=== PATIENT | female | born 1965 | race Caucasian/White ===

== ENCOUNTER → 2022-08-10 | Outpatient (CLI) | payer OTHER, SELFPAY ==
[2022-08-12 14:09] LABS: Endomysial Antibody IgA Negative (Negative)
[2022-08-12 16:30] LABS: Immunoglobulin A 107 mg/dL (87-352); t-Transglutaminase IgA <2 U/mL (0-3)
== END | disposition home or self-care (01) ==
LOC: MTLAB 15:20
PROVIDERS: PCP Nurse Practitioner Family; Referring Provider Internal Medicine Gastroenterology; Visit Provider Internal Medicine Gastroenterology
DX: R19.7 Diarrhea, unspecified (principal)
CPT/HCPCS: 36415; 82784; 83516; 86140; 86255

== ENCOUNTER → 2023-01-27 | Outpatient (CLI) | payer OTHER, SELFPAY ==
[2023-01-27 13:17] LABS: Hemoglobin A1c 9.8 % (3.8-5.6)
== END | disposition home or self-care (01) ==
LOC: MTLAB 10:14
PROVIDERS: PCP Nurse Practitioner Family; Referring Provider Internal Medicine Gastroenterology; Visit Provider Internal Medicine Gastroenterology
DX: R19.7 Diarrhea, unspecified (principal)
CPT/HCPCS: 36415; 83036; 86140

== ENCOUNTER → 2023-01-29 | Outpatient (CLI) | payer OTHER, SELFPAY ==
[2023-02-04 16:09] LABS: Pancreatic Elastase, Fecal 362 (>200)
== END | disposition home or self-care (01) ==
LOC: MTLAB 09:41
PROVIDERS: PCP Nurse Practitioner Family; Referring Provider Internal Medicine Gastroenterology; Visit Provider Internal Medicine Gastroenterology
DX: R19.7 Diarrhea, unspecified (principal)
CPT/HCPCS: 82274; 82653

== ENCOUNTER → 2023-12-17 | Outpatient (CLI) | payer OTHER, SELFPAY ==
[2023-12-17 10:59] LABS: Bacteria 0 SEEN /hpf (None Seen); Mucous, Urine 0 SEEN /hpf (<or=2+); Red Blood Cells-Urine 0 SEEN /hpf (0-5); Squamous Epithelial Cells - UA 0 SEEN /hpf (5-10)
[2023-12-17 11:03] LABS: Color, Urine Yellow (Yellow); Glucose, Dipstick Normal (Normal); Ketone-Dipstick Negative (Negative); Leukocyte Esterase-Dipstick 500 /ul (Negative); Nitrite-Dipstick Negative (Negative); Occult Blood-Urine 250 /ul (Negative); Protein-Dipstick 100 mg/dl (Negative); Specific Gravity, Urine 1.015 (1.002-1.030); Urine Bilirubin Dipstick Negative (Negative); Urine Clarity Cloudy (Clear); Urine Urobilinogen Normal (Normal)
[2023-12-17 11:10] LABS: White Blood Cells >100 SEEN /hpf (0-5)
[2023-12-17 11:56] LABS: Microalbumin:Creatinine Ratio 782.9 mg/g CRE (<30 mg/g CRE)
== END | disposition home or self-care (01) ==
LOC: PAVLAB 10:20
PROVIDERS: Nurse Practitioner Family; PCP Nurse Practitioner Family; Referring Provider Internal Medicine Endocrinology, Diabetes & Metabolism; Visit Provider Internal Medicine Endocrinology, Diabetes & Metabolism
DX: R31.9 Hematuria, unspecified (principal); E10.9 Type 1 diabetes mellitus without complications; E78.00 Pure hypercholesterolemia, unspecified
CPT/HCPCS: 81001; 82043; 82570; 87077; 87086; 87088; 87186

== ENCOUNTER → 2024-01-05 | Outpatient (CLI) | payer OTHER, SELFPAY ==
[2024-01-05 12:12] LABS: Absolute Lymphocyte Count 1.97 X10^3/uL (0.83-4.51); Absolute Neutrophil Count 3.5 X10^3/uL (2.0-7.7); Basophil# 0.06 X10^3/uL; Eosinophil# 0.01 X10^3/uL; Eosinophils% 0.2 % (0-5); Hematocrit 42.3 % (37-47); Hemoglobin 14.2 g/dL (12.0-15.0); Lymphocyte # 1.97 X10^3/ul (0.83-4.51); Lymphocyte % 31.4 % (19-41); Mean Corp Hgb Conc 33.6 g/dL (32-36); Mean Corpuscular Hgb 32.1 pg (27.0-32.0); Mean Corpuscular Volume 95.5 fL (81-99); Mean Platelet Vol. 9.9 fl (6.2-12.0); Monocyte# 0.72 X10^3/uL; Monocyte% 11.5 % (0-10); NRBC Flagged by Analyzer 0 % (0-5); Neutrophil # 3.47 X10^3/uL (2.7-7.7); Neutrophil % 55.3 % (47-70); Platelet Count 460 K/mm3 (150-450); Red Blood Count 4.43 M/mm3 (4.2-5.4); White Blood Count 6.3 K/mm3 (4.4-11.0)
[2024-01-05 12:52] LABS: Microalbumin,Random Urine 7.9 mg/L (NO RANGE EST.); Microalbumin:Creatinine Ratio 6.3 mg/g CRE (<30 mg/g CRE)
[2024-01-05 13:00] LABS: Vitamin D,25 Hydroxy 54.9 ng/mL
[2024-01-05 13:08] LABS: ALB/GLOB Ratio 0.7 RATIO (0.9-2.4); AST(SGOT) 24 U/L (15-37); Alanine Aminotransfer ALT/SGPT 21 U/L (13-56); Albumin, Serum 3.1 g/dL (3.2-5.0); Alkaline Phosphatase 137 U/L (45-117); Anion Gap 4 (5-15); BUN 14 mg/dL (7-18); BUN/Creat Ratio 18.6 RATIO (10-20); Calcium,Total 9.1 mg/dL (8.5-10.1); Chloride 102 mmol/L (98-107); Cholesterol 280 mg/dL (200); Creatinine, Serum 0.75 mg/dL (0.55-1.02); EST Glomerular Filtration Rate 84 mL/min (>60); Est Glom Filt Rate - Afr Amer 102 mL/min (>60); Globulin 4.3 g/dL (2.2-4.2); Glucose 125 mg/dL (74-106); High Density Lipoprotein 86 mg/dL; Potassium 4.2 mmol/L (3.5-5.1); Protein, Total 7.4 g/dL (6.4-8.2); Sodium Level 137 mmol/L (136-145); Thyroid Stim Hormone (TSH) 0.99 uIU/mL (0.358-3.74); Triglycerides 102 mg/dL; Very Low Density Lipoprotein 20 mg/dL (5-40)
== END | disposition home or self-care (01) ==
LOC: BIMLAB 10:48
PROVIDERS: Nurse Practitioner Family; PCP Nurse Practitioner; Referring Provider Internal Medicine; Visit Provider Internal Medicine
DX: E10.9 Type 1 diabetes mellitus without complications (principal); R31.9 Hematuria, unspecified
CPT/HCPCS: 36415; 80053; 80061; 82043; 82306; 82570; 84443; 85025

== ENCOUNTER → 2024-01-13 | Outpatient (CLI) | payer OTHER, SELFPAY ==
--- NOTE | 2024-01-13 15:18 | CT_ITS ---
STUDY: CT ABDOMEN AND PELVIS WITH AND WITHOUT CONTRAST REASON FOR EXAM: Female, 58 years old. Recurrent hematuria -- with urogram. Recurrent UTIs. RADIATION DOSAGE (If Supplied By Facility): CTDIvol = ( 26.11 ) mGy, DLP = ( 3980.92 ) mGycm TECHNIQUE: Transaxial images were obtained from the dome of the diaphragm to the symphysis pubis without oral contrast. IV 100mL Isovue-300 was administered. Sagittal and coronal images were reconstructed. Individualized dose optimization techniques were used for this CT. COMPARISON: None. FINDINGS: The visualized lung bases are unremarkable. The visualized portions of the heart are within normal limits. There is decreased attenuation of the liver consistent with steatosis. Normal gallbladder and extrahepatic biliary system. Normal spleen. Normal pancreas. Normal bilateral adrenal glands. Normal right kidney. Normal left kidney. Incidental note is made of a left retroaortic renal vein. Normal visualized stomach. Normal small intestine. Surgical anastomosis seen in the region of the mid ascending colon. There is non-visualization of the appendix. There is scattered atherosclerotic calcification of the abdominal aorta, without a demonstrated aneurysm. Normal inferior vena cava. Normal retroperitoneum. Normal urinary bladder. Mild degree of increased soft tissue changes in the anterior lateral abdominal wall bilaterally just deep to the skin. Moderate degree of disc space narrowing at the L4-L5 level with spondylosis and subchondral sclerosis. CT/CT Abd/Pelvis W/WO Contrast IMPRESSION: Fatty infiltration of the liver. Surgical anastomosis is seen in the region of the mid descending colon. Electronically Signed: Yousuf Griffiths MD at 9:13 EDT ,
== END | disposition home or self-care (01) ==
LOC: CT 15:15
PROVIDERS: PCP Nurse Practitioner; Referring Provider Nurse Practitioner; Visit Provider Nurse Practitioner
DX: R31.9 Hematuria, unspecified (principal)
CPT/HCPCS: 74178; Q9967

== ENCOUNTER 2024-05-30 11:34 | Outpatient (RCR) | payer OTHER, SELFPAY ==
--- NOTE | 2024-05-31 16:50 | HP.OTFCE_ITS ---
Task Lift Floor (Occasional 1-33% of Day): 20 Floor (Frequent 34-66% of Day): 10 Floor (Constant 67-100% of Day): 4.21 Floor PDL: Light Knee (Occasional 1-33% of Day): 20 Knee (Frequent 34-66% of Day): 10 Knee (Constant 67-100% of Day): 4.21 Knee PDL: Light Waist (Occasional 1-33% of Day): 20 Waist (Frequent 34-66% of Day): 10 Waist (Constant 67-100% of Day): 4.21 Waist PDL: Light Shoulder (Occasional 1-33% of Day): 15 Shoulder (Frequent 34-66% of Day): 7.5 Shoulder (Constant 67-100% of Day): 3.15 Shoulder PDL: Sedentary-Light Overhead (Occasional 1-33% of Day): 15 Overhead (Frequent 34-66% of Day): 7.5 Overhead (Constant 67-100% of Day): 3.15 Overhead PDL: Sedentary-Light Work Activity/Posture Bending: Frequent Ability (34-66% of day) Squatting: Frequent Ability (34-66% of day) Kneeling: No Ablility (0% of day) Reaching out: Constant Ability (67-100% of day) Reaching up: Constant Ability (67-100% of day) Sitting: Frequent Ability (34-66% of day) Walking: Occasional Ability (1-33% of day) Standing: Occasional Ability (1-33% of day) Reference Reference: Duration Sedentary Sedentary Light Light Light Medium Medium Medium Heavy Very Heavy Heavy Occasional (0-33% of day) Frequent (34-66% of day) Constant (67-100% of day) 10 # Negligible Negligible 15 # 8 # Negligible 20 # 10# Negli. 35 # 18 # 7 # 50 # 25 # 10 # 75 # 100 # >100 # 38 # 50 # >50 # 15 # 20 # >20 # Patient Information Height: 5 ft 3 in Weight:: 109.769 kg Hand Dominance: R Medical History Medical History Including Restrictions: Pt reports main complaint is B bad knees which she reports she has had shots in them aprox 1 year ago which wears off quickly. legs constantly hurt as well as low back pain. pt reports now having sciatic pain on R side down to knee which started around december of this year 2023. pt has seen chiropractor however has not helped. has not done therapy at this time. Pt reports frequent UTIs which makes pt sick for approx 3 days until antibiotics gets working. pt states she sees urologist for this and has been prescribed as needed antibiotics. . Pt is type 1 diabetic. pt takes advil for pain as needed. has not yet seen pain management. pt does report tennis elbow on R side many years ago unable to remember if she had therapy for this or not reports similar pain on L side however never formally dx stating this causing weakness and pain with UB use. PMH: hematuria, high cholesterol, HTN, obesity and DM type 1. Diagnoses Diagnoses: Z02.71 Encounter for disability determination Symptoms Symptoms: knee pain both sides R side sciatic pain lower back pain frequent pain from UTI mostly nausea and upset stomach Pain Pain: knees 6/10 B sides R sciatic pain 9/10 which is random in presentation lower back 5/10 Don score 56/72 Work History Work History: [employer] 15 years left this job in pt has not worked since this [employer] work was there for approx 7 years before they went out of business Behavioral Behavioral: calm and cooperative ADLS ADLS: pt lives with spouse in private home 2 story home with 3 stairs to enter with hand rail ascending R side. main level with bathroom and bedroom. second floor is downstairs with laundry which pt reports does laundry pt declines going down steps. 6 steps down with no railing. Pt is I in ADL tasks as well as IADL tasks. Drives. Shower with tub shower combo with grab bars pt does have a seat in her tub and alternates between sit and standing during task. takes care of small dog at home. Physical Examination Physical Examination: pt arrives for FCE completion able to stand from chair and walk back to OT room no AD needed slow pace. baseline HR 63 bpm and 02 96% ROM: BUE AROM WFL BLE AROM WFL Strength: UB strength measured with micro fet 2 peak force tool L shoulder flexion 6.5# R shoulder flexion 6.8# L bicep 15# R bicep 9.1 # L tricep 7.3# R tricep 6.8# Lower extremities: L hamstrin.6# R hamstrin.3# L quad: 11.9# R quad: 6.5# L hamstrin.5# R hamstrin.6# Right [employer] Sales [employer] Strength Average: 13.33 Right Regional Sales Associate Strength Percentile: 50th percentile Left Regional Sales Associate Strength Average: 15.00 Left Regional Sales Associate Strength Percentile: 46th percentile Right Lateral Pinch Average: 0.33 Right Lateral Pinch Percentile: < 10th percentile Left Lateral Pinch Average: 2.00 Left Lateral Pinch Percentile: < 10th percentile Right Tripod Pinch Average: 1.00 Right Tripod Pinch Percentile: < 10th percentile Left Tripod Pinch Average: 0.33 Left Tripod Pinch Percentile: < 10th percentile Sensation: reports getting numbness and tingling in fingers tips was wearing braces on hands for this occasionally semmes- quin monofilaments L hand 2.44 indicating in normal range R hand 3.22 indicating diminished light touch Fine Motor: denies difficulty with fine motor reports able to manage all fasteners and small packages no problem 9 hole peg assessment: L hand trial 1: 31 sec L hand trial 2: 24 sec L hand trial 3: 23 sec average: 26 sec 25th percentile for gender and age R hand trial 1: 26 sec R hand trial 2: 21 sec R hand trial 3: 20 sec average: 22.3 sec 50th percentile for gender and age Balance: standing forward reach assessment reach at 8 indicating risk of fall is 2x greater than normal per pt she has had approx 3 falls this past year from knees giving out occasional able to catch self on things such as bars Non Material Handling Activities Bending: bending 3 trails: 3/3 bending at own pace: 10/10 hand on counter widens stance as going HR 95bpm and 02 93% bending 10x fast: 10/10 hand on counter wide stand after approx 5 reps begins to hold onto L leg on way up to push from thigh HR 92 bpm and 02 99% knee pain as 7/10 during lower back pain 6/10 during sciatic pain 9/10 during Squatting: squatting 3 trials 3/3 squatting at own pace: 10/10 holding onto counter wide stand squat correction and back up uses hip for support during task HR 79 bpm and 02 99% squatting 10x fast: 10/10 hand on counter other hand on hip squats correction down HR 82bpm 02 99% sits after completion for RB knee pain 6/10 lower back pain 6/10 sciatic pain 9/10 during Kneeling: kneeling 3 trails: 1/3 had to have help to stand back up unable to complete. Reaching out/up: reaching out 3 trails 3/3 reaching out own pace : 07/20 reaching out 10x fast : 07/20 HR 77 and 02 98% Reaching up: 3/3 trails reaching up at own apce: 07/20 reaching up 10x fast: 07/20 HR 78 02 98% knee pain 7/10 lower back pain 5/10 sciatic pain /10 sits after reaching out and then again after reaching up wide stand during reaching task full ROM during reaches Walking: pt reports able to walk a block before she would need to stop able to walk from OT room to stairs and around [facility] x1 lap unable to continue holds onto wall rail occasionally walking pace has slowed down per pt approx 8 years however recently has gotten way worse 101 bpm and 02 97% walked 465 feet total Standing: pt reports able to stand for 15 minutes before needing to sit stands approx 7-10 min duration between tasks and during walking tasks frequent weight shift Sitting: pt reports 15 minutes before needing to stand up sits for intake approx 30 min before standing for completion of physical portion of assessment no adjustment in posture able to sit with B feet on floor no weight shifting noted during sit Climbing Stairs: reports she thinks she can do about three before she would need to stop with a railing stairs: hold on to B rails ascends and descends 4 steps step 2 pattern up and down leans on R arm slight knee buckle on step 2 going up 83 bpm and 02 96% Dynamic Occasional Lifting Capacity Floor Lift: floor lift box (15#)+ 5# HR 86 bpm and 02 98% wide stance total 20# squats to cotton picking machine operator and place on counter top able to take small step forward to place on counter Knee Lift: knee lift box (15#) + 5# HR 89 bpm and 02 97% total 20# wide stance forward lean during task able to take small step forward to place on counter Waist Lift: waist lift box (15#) +5# HR 83 bpm and HR 98% total 20# knee pain 6/10 lower back pain 6/10 sciatic pain 07/20 able to take two small steps to L then again back to R requires seated RB after completion before moving on to shoulder lift Shoulder Lift: shoulder lift box (15#) total 15# HR 92 bpm and 02 96% knee pain 6/10 lower back pain 6/10 sciatic pain 10/10 Overhead Lift: overhead lift box (15#) HR 81 bpm and 02 96% total 15# knee pain 6/10 lower back pain 6/10 sciatic pain 10/10 Carrying: carries box to and from filing cabinet 15# total holding at bottom handle bar reciprocal pattern gait HR 82 bpm and 02 96% distance 50 feet total Comments: push/ pull: able to push sled across therapy room no additional weight added R knee begins to shake and increase in bend 40 feet total (20 feet push and 20 feet pull) sled is approx 46 pounds brand name [employer]
== END 2024-05-30 19:00 | disposition home or self-care (01) ==
LOC: OT 11:34
PROVIDERS: PCP Internal Medicine; Referring Provider Internal Medicine; Visit Provider Internal Medicine
DX: Z02.71 Encounter for disability determination (principal)
CPT/HCPCS: 97750

== ENCOUNTER → 2024-06-05 | Outpatient (CLI) | payer OTHER, SELFPAY ==
--- NOTE | 2024-06-05 13:33 | BI_ITS ---
MAMMOGRAPHY - BILATERAL SCREENING REASON FOR EXAM: Female, 58 years old. Routine annual screening examination. PERTINENT HISTORY: Sister with breast cancer. TECHNIQUE: Digital bilateral breast wilmer (3D mammographic acquisition) in the CC and MLO projections. 2-D mediolateral oblique (MLO) and craniocaudad (CC) views of both breasts were obtained. CAD: Full Field Digital Mammography with Computer Added Detection was performed. COMPARISON: Comparison is made with prior outside examination February 23, 2023. FINDINGS: Breast Composition: The breasts are almost entirely fatty. There are no dominant masses or suspicious calcifications. No other significant abnormalities are identified. There has been no significant change since the prior study. BI/SCRN MAMM (CAD)W/WILMER BILAT IMPRESSION: Stable bilateral screening mammogram. Yearly follow-up mammogram recommended. (A) ASSESSMENT CATEGORY: BIRADS Category 1: Negative. A letter regarding these results will be sent to the patient by the facility within 30 days. Approximately 10% of breast cancers are not detected by mammography. A normal mammogram should not delay biopsy of a clinically suspicious abnormality. [id number] Electronically Signed: Yousuf Griffiths MD at 14:18 EDT ,
== END | disposition home or self-care (01) ==
LOC: OPBI 13:33
PROVIDERS: PCP Internal Medicine; Referring Provider Nurse Practitioner; Visit Provider Nurse Practitioner
DX: Z12.31 Encounter for screening mammogram for malignant neoplasm of breast (principal); Z80.3 Family history of malignant neoplasm of breast
CPT/HCPCS: 77063; 77067